=== PATIENT | female | born 1980 | race Caucasian/White ===

== ENCOUNTER 2016-08-01 21:01 | Emergency (ER) | payer MEDICAID ==
[2016-08-01 21:17] VITALS: BP 140/86
--- NOTE | 2016-08-02 01:37 | ER ---
DATE SEEN: 08/01/2016 TIME SEEN: The patient was seen at 2109 hours. CHIEF COMPLAINT: Chest pain. HISTORY OF PRESENT ILLNESS: This 35-year-old at 2000 hours yesterday noted midsternal discomfort. This morning, she had 4/10 interscapular pain . This pain was continuous through mid a.m. and stopped. She has mild discomfort now. She describes a constant pressure. The chest pain she describes is 7-8/10 in intensity. It comes and goes. It is stabbing in character. It is mostly frontal and lasts 4 to 5 minutes. It started at 2000 hours this evening. Also was noted to have come 5 to 10 minutes apart starting at 0630 hours this evening. She lifts heavy things at work. 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 The patient denies low back ache. She did not think the pain is worse with lifting today. She does not work tomorrow. She has associated mild shortness of breath. Had a cold sweat with this chest discomfort today and not skipped a meal. She has chronic smoker's cough, most notable in last few years, has shortness of breath, dyspnea on exertion on occasion. Occasionally, she had mild abdominal pain off and on. She does not drink alcohol while working, but she has one drink at night half our before leaving work. She has mild associated jaw pain. No problems with her teeth. PAST MEDICAL HISTORY: Previous hysterectomy, bilateral salpingo-oophorectomy, 7, para 3-5-0-3. Had one child who at age 3.5 months of a heart problem, she described as myocardial infarction. She is not really sure why he . Has one daughter who has stage IV cancer, she is 5 years now post treatment, is 15 years of age. No diabetes, no heart disease, no high blood pressure, asthma, or other serious illnesses. No trauma. No abuse. The patient is and . REVIEW OF SYSTEMS: Negative. The patient denies syncope, palpitations, irregular heartbeat. No nausea, vomiting, diarrhea, constipation, blood in her stool, black tarry stools, frequency, urgency or dysuria, musculoskeletal complaints, joint pain, skin problems, or shingles. PHYSICAL EXAMINATION: VITAL SIGNS: Blood pressure 140/86, heart rate 82, respirations 23, oxygen saturation 98%. Temperature 37 degrees centigrade, 66.678 kilos. BMI is 26.9. GENERAL: This pleasant, slightly short-statured woman is in no acute distress presently. She is mildly overweight. HEENT: Mildly prominent, scarring from old acne scar. TMs negative. Pharynx without abnormality. NECK: No bruits. No thyromegaly. No masses in neck. LUNGS: Clear without rales, rhonchi, or wheezes. HEART: S1, S2. No murmur. No irregular rate or rhythm. No S3. ABDOMEN: Soft. No guarding. No abdominal discomfort. No chest wall discomfort with palpation. No crepitus. No spinous process tenderness. MUSCULOSKELETAL: Cervical spine: No scapular spine and no paraspinal myalgia reproduced on palpation of back. No CVA percussion tenderness. NEURO: Deep tendon reflex upper and lower extremities. Cranial nerves 2 through 12 intact. Appropriate, oriented, and speaks appropriately. DIAGNOSTIC DATA: EKG is sinus rhythm. Troponin is normal. Complete metabolic panel is normal except for mild dehydration, 28.6 of BUN and creatinine ratio. D-dimer is less than 100. ASSESSMENT: 1. Nonspecific chest pain. Etiology indeterminate. 2. If she has persistent further discomfort, she has been advised to have a stress test performed. 3. Mildly overweight. 4. Smokes less than a pack per day. 5. She is an active woman, very possibly may be a musculoskeletal etiology to the patient's pain. No history of acid peptic disease or esophagitis. PLAN: Follow up with doctor in a week. No medications given to the patient. /[id number] CRISTEL/LONNY CABRALES
--- NOTE | 2016-08-07 11:21 | CR ---
INDICATION: Chest pain. CHEST, PA AND LATERAL VIEWS: FINDINGS: No comparison imaging. There appears to be some slight scalloping or eventration of the right hemidiaphragm. The lungs are clear of acute infiltrate or effusion. The heart size is at the upper limits of normal. There is no CHF. The mediastinal contours look normal. There is a scoliosis deformity lower thoracic spine curved convex left. Mid lumbar spine is curved convex right. There is some generalized degenerative endplate change and spurring throughout the thoracic spine. IMPRESSION: No acute abnormality in the chest. Specifically, no CHF or pneumonia. MTDD
== END 2016-08-01 22:20 | disposition home or self-care (01) ==
LOC: FB.ED 21:01
DX: R07.89 Other chest pain (principal); E66.3 Overweight; F17.210 Nicotine dependence, cigarettes, uncomplicated; Z90.710 Acquired absence of both cervix and uterus; Z90.722 Acquired absence of ovaries, bilateral
CPT/HCPCS: 36415; 71020; 80053; 84484; 85379; 93005; 99285

== ENCOUNTER 2017-01-02 01:00 | Emergency (ER) | payer MEDICAID ==
[2017-01-02] MEDS ORDERED: Ibuprofen 600 MG Tab PO ONE (01:24)
[2017-01-02] MEDS ORDERED: Nicotine 21 MG/24 Hr Patch TRDERM ONE (02:50)
[2017-01-02] MEDS ORDERED: Nicotine 21 MG/24 Hr Patch ONE (02:59)
--- NOTE | 2017-01-02 04:46 | EDM.PDOC ---
ED HPI GENERAL MEDICAL PROBLEM - General Chief Complaint: Neck Problem Stated Complaint: FELL AND HIT THROAT Time Seen by Provider: 01/02/17 01:10 Source of Information: Reports: Patient, Family History Limitations: Reports: No Limitations - History of Present Illness INITIAL COMMENTS - FREE TEXT/NARRATIVE: Patient is a 36 year old woman who at 23:00 on 01-01-17 tripped at a bar and the front of her neck hit the edge of a barstool. She had pain and she tried drinking some more alcohol to deaden the pain, which did not help. She went home and when she laid down flat she had worsening pain in the neck and she felt that it was hard to breathe due to the pain. If she sits up she has less pain and no problems breathing. No other complaints. 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 Anterior throat/neck Pain Score (Numeric/FACES): 8 - Related Data Allergies Allergy/AdvReac Type Severity Reaction Status Date / Time bupropion [From Wellbutrin] AdvReac Severe Hives Verified 01/02/17 01:23 Penicillins AdvReac Shortness Verified 01/02/17 01:23 of Breath Home Meds: Home Meds NK [No Known Home Meds] 08/01/16 [History] Past Medical History HEENT History: Reports: None Cardiovascular History: Reports: Other (See Below) Other Cardiovascular History: palpitations Gastrointestinal History: Reports: Celiac Disease, GERD PRIVATE WEALTH ADVISOR History: Reports: Endometrial Ablation, Endometriosis Musculoskeletal History: Reports: Fracture, Other (See Below) Other Musculoskeletal History: plates in L) arm, fx to fingers of R hand Neurological History: Reports: Concussion, Migraines, Seizure, Other (See Below) Other Neuro History: hx alcoholic seizures Psychiatric History: Reports: Addiction, Anxiety, Bipolar, Depression, Psych Hospitalization(s), Suicide Attempt Endocrine/Metabolic History: Reports: Obesity/BMI 30+ Dermatologic History: Reports: Other (See Below) Other Dermatologic History: acne - Infectious Disease History Infectious Disease History: Reports: Chicken Pox - Past Surgical History HEENT Surgical History: Reports: Other (See Below) Other HEENT Surgeries/Procedures: benign growth removed from throat Cardiovascular Surgical History: Reports: None GI Surgical History: Reports: None, EGD Female Surgical History: Reports: Hysterectomy Neurological Surgical History: Reports: None Musculoskeletal Surgical History: Reports: ORIF, Other (See Below) Other Musculoskeletal Surgeries/Procedures:: L arm surgery Dermatological Surgical History: Reports: None Social & Family History - Family History Family Medical History: Noncontributory - Tobacco Use Smoking Status *Q: Current Every Day Smoker Years of Tobacco use: 28 Packs/Tins Daily: 1.5 - Caffeine Use Caffeine Use: Reports: Coffee, Soda - Alcohol Use Days Per Week of Alcohol Use: 2 Number of Drinks Per Day: 5 Total Drinks Per Week: 10 - Recreational Drug Use Recreational Drug Use: Yes Drug Use in Last 12 Months: Yes Recreational Drug Type: Reports: Marijuana/Hashish Recreational Drug Use Frequency: Daily ED ROS GENERAL - Review of Systems Review Of Systems: See Below Constitutional: Reports: No Symptoms HEENT: Reports: Other (Neck pain where she hit barstool.) Respiratory: Reports: No Symptoms Cardiovascular: Reports: No Symptoms Endocrine: Reports: No Symptoms GI/Abdominal: Reports: No Symptoms : Reports: No Symptoms Musculoskeletal: Reports: Neck Pain Skin: Reports: No Symptoms Neurological: Reports: No Symptoms Psychiatric: Reports: No Symptoms Hematologic/Lymphatic: Reports: No Symptoms Immunologic: Reports: No Symptoms ED EXAM, UPPER BACK/NECK PAIN - Physical Exam Exam: See Below Exam Limited By: No Limitations General Appearance: Alert, WD/WN, No Apparent Distress Eye Exam: Bilateral Eye: EOMI, Normal Fundi, Normal Inspection, PERRL Ears Exam: Normal External Exam, Normal Canal, Hearing Grossly Normal, Normal TMs Nose Exam: Normal Inspection, Normal Mucousa, No Blood Throat/Mouth Exam: Normal Inspection, Normal Lips, Normal Teeth, Normal Gums, Normal Oropharynx, Normal Voice, No Airway Compromise Head Exam: Atraumatic, Normocephalic Neck Exam: Tenderness (Over front of neck with pain on palpation and minor swelling.) Cardiovascular/Respiratory: Regular Rate, Rhythm, No M/R/G, Normal Peripheral Pulses, No JVD, Normal Breath Sounds, No Respiratory Distress GI/Abdominal: Normal Bowel Sounds, Soft, Non-Tender, No Organomegaly, No Distention, No Abnormal Bruit, No Mass (Female) Exam: Normal External Exam, Normal Speculum Exam, Normal Bimanual Exam Back Exam: Normal Inspection, Full Range of Motion, NT Extremities: Normal Inspection, Normal Range of Motion, Non-Tender, No Pedal Edema, Normal Capillary Refill 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 She got some relief with 600 mg po Ibuprofen and she was comfortable and had no difficulties breathing with normal Oxygen saturations while she was in the ED. Her ETOH was 150 and her other labs were normal. Her head and neck CT's were normal and there was no free air in the neck CT, indicating no laryngeal injury. She will be discharged home on Ibuprofen 600 mg po q 6 hours, Tylenol 500 mg po q 4 hours, rest, ice as needed and recheck with PCP if pain is not resolving. Come to ED if any problems breathing. Last Recorded V/S: Last Vital Signs Temp 36.4 C 01/02/17 01:06 Pulse 115 H 01/02/17 01:06 Resp 18 01/02/17 03:30 BP 130/84 01/02/17 03:30 Pulse Ox 100 01/02/17 03:30 - Orders/Labs/Meds Orders: Active Orders 24 hr Category Date Time Status Cervical Spine wo Cont [CT] Stat Exams 01/02/17 01:24 Taken Head wo Cont [CT] Stat Exams 01/02/17 01:28 Ordered Labs: Laboratory Tests 01/02/17 01/02/17 01/02/17 Range/Units 02:38 02:38 02:38 WBC 10.9 (4.5-12.0) X10-3/uL RBC 4.60 (3.23-5.20) x10(6)uL Hgb 14.5 (11.5-15.5) g/dL Hct 41.5 (30.0-51.3) % MCV 90.2 (80-96) fL MCH 31.6 (27.7-33.6) pg MCHC 35.0 (32.2-35.4) g/dL RDW 12.2 (11.5-15.5) % Plt Count 363 (125-369) X10(3)uL MPV 7.6 (7.4-10.4) fL Neut % (Auto) 50.5 (46-82) % Lymph % (Auto) 39.4 H (13-37) % [place] % (Auto) 7.5 (4-12) % Eos % (Auto) 2 (1.0-5.0) % Baso % (Auto) 1 (0-2) % Neut # (Auto) 5.5 (1.6-8.3) # Lymph # (Auto) 4.3 (0.6-5.0) # [place] # (Auto) 0.8 (0.0-1.3) # Eos # (Auto) 0.2 (0.0-0.8) # Baso # (Auto) 0.1 (0.0-0.2) # Sodium 142 (135-145) mmol/L Potassium 4.3 (3.5-5.3) mmol/L Chloride 108 (100-110) mmol/L Carbon Dioxide 25 (23-29) mmol/L BUN 12 (5-20) mg/dL Creatinine 0.6 (0.6-1.3) mg/dL Est Cr Clr Drug Dosing 96.87 mL/min Estimated GFR (MDRD) > 60 (>60) BUN/Creatinine Ratio 20.0 (9-20) Glucose 107 (80-116) mg/dL Calcium 9.3 (8.6-10.2) mg/dL Total Bilirubin 0.4 (0.1-1.3) mg/dL AST 18 (5-27) IU/L ALT 26 D (14-26) IU/L Alkaline Phosphatase 59 (56-112) IU/L Total Protein 7.7 (6.0-8.0) g/dL Albumin 4.5 (3.5-5.2) g/dL Globulin 3.2 g/dL Albumin/Globulin Ratio 1.4 Ethyl Alcohol 0.15 H* (<0.01) % Meds: Medications Discontinued Medications Generic Name Dose Route Start Last Admin Trade Name Freq PRN Reason Stop Dose Admin Ibuprofen 600 mg 11/17/17 01:24 01/02/17 01:39 Motrin PO 01/02/17 01:25 600 mg ONETIME ONE Administration Nicotine Confirm 01/02/17 02:59 01/02/17 03:05 Habitrol Administered 01/02/17 03:00 21 mg Dose Administration 21 mg .ROUTE .STK-MED ONE Departure - Departure Time of Disposition: 04:53 Disposition: Home, Self-Care 01 Condition: Good Clinical Impression: Contusion of neck - Discharge Information Referrals: PCP,None [Primary Care Provider] - - My Orders Last 24 Hours: My Active Orders 01/02/17 01:24 Cervical Spine wo Cont [CT] Stat 01/02/17 01:28 Head wo Cont [CT] Stat - Assessment/Plan Last 24 Hours: My Active Orders 01/02/17 01:24 Cervical Spine wo Cont [CT] Stat 01/02/17 01:28 Head wo Cont [CT] Stat
[2017-01-02 04:57] VITALS: BP 123/91
== END 2017-01-02 04:45 | disposition home or self-care (01) ==
LOC: FB.ED 01:00
DX: S10.93XA Contusion of unspecified part of neck, initial encounter (principal); F17.210 Nicotine dependence, cigarettes, uncomplicated; E66.9 Obesity, unspecified; Z88.0 Allergy status to penicillin; Z88.8 Allergy status to other drugs, medicaments and biological substances; W22.8XXA Striking against or struck by other objects, initial encounter; Y92.89 Other specified places as the place of occurrence of the external cause
CPT/HCPCS: 36415; 72125; 80053; 85025; 99284; A9270; G0480

== ENCOUNTER 2018-11-06 15:05 | Emergency (ER) | payer BC, MEDICAID ==
[2018-11-06] MEDS ORDERED: Codeine/guaiFENesin 100mg-10 MG/5 ML Soln 118 ML Bottle PO ONE (15:06)
[2018-11-06] MEDS ORDERED: methylPREDNISolone Sodium Succinate 125 MG/2 ML SDV IVPUSH ONE (15:15)
--- NOTE | 2018-11-06 15:17 | EDM.PDOC ---
ED HPI GENERAL MEDICAL PROBLEM - General Chief Complaint: Respiratory Problem Stated Complaint: sent from clinic Time Seen by Provider: 11/06/18 15:11 Source of Information: Reports: Patient, Family History Limitations: Reports: No Limitations - History of Present Illness INITIAL COMMENTS - FREE TEXT/NARRATIVE: 38 y.o. chronic smoker, was transferred to the ED for further evaluation and Tx of her cont cough and SOB. Pt is a chronic/daily smoker, is using a duo neb nebs and is on Doxycycline as well. None of those meds helped her, which made her to come to the several time in the past few weeks/days. No C/P no N/V/D or any other acute med issues. 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 (see below) (duoneb) - Related Data Allergies Allergy/AdvReac Type Severity Reaction Status Date / Time bupropion [From Wellbutrin] AdvReac Severe Hives Verified 11/06/18 16:04 Penicillins AdvReac Shortness Verified 11/06/18 16:04 of Breath Home Meds: Home Meds Albuterol Sulfate [Albuterol Sulfate Hfa] 18 gm IH Q4HR PRN #1 hfa.aer.ad [Rx] Albuterol [Ventolin HFA] 1 puff INH Q4H PRN 11/06/18 [History] Ciprofloxacin HCl [Cipro] 500 mg PO BID #20 tablet 11/06/18 [Rx] Doxycycline Monohydrate 100 mg PO DAILY 11/06/18 [History] predniSONE 20 mg PO WITHBREAKFAST #4 tab 11/06/18 [Rx] Past Medical History HEENT History: Reports: None Cardiovascular History: Reports: Other (See Below) Other Cardiovascular History: palpitations Respiratory History: Reports: COPD Gastrointestinal History: Reports: Celiac Disease, GERD Genitourinary History: Reports: Urinary Incontinence AFTER SCHOOL COORDINATOR History: Reports: Endometrial Ablation, Endometriosis, Other AFTER SCHOOL COORDINATOR History: Musculoskeletal History: Reports: Fracture, Other (See Below) Other Musculoskeletal History: plates in L) arm, fx to fingers of R hand Neurological History: Reports: Concussion, Migraines, Seizure, Other (See Below) Other Neuro History: hx alcoholic seizures Psychiatric History: Reports: Addiction, Anxiety, Bipolar, Depression, Psych Hospitalization(s), Suicide Attempt Endocrine/Metabolic History: Reports: Obesity/BMI 30+ Hematologic History: Reports: Anemia Dermatologic History: Reports: Other (See Below) Other Dermatologic History: acne - Infectious Disease History Infectious Disease History: Reports: Chicken Pox, MRSA - Past Surgical History HEENT Surgical History: Reports: Other (See Below) Other HEENT Surgeries/Procedures: benign growth removed from vocal cords Cardiovascular Surgical History: Reports: None GI Surgical History: Reports: None, EGD Female Surgical History: Reports: Hysterectomy Neurological Surgical History: Reports: None Musculoskeletal Surgical History: Reports: ORIF, Other (See Below) Other Musculoskeletal Surgeries/Procedures:: L arm surgery Dermatological Surgical History: Reports: None Social & Family History - Family History Family Medical History: Noncontributory - Caffeine Use Caffeine Use: Reports: Coffee, Soda ED ROS GENERAL - Review of Systems Review Of Systems: See Below Constitutional: Reports: No Symptoms HEENT: Reports: No Symptoms Respiratory: Reports: Wheezing, Cough Cardiovascular: Reports: No Symptoms Endocrine: Reports: No Symptoms GI/Abdominal: Reports: No Symptoms : Reports: No Symptoms Musculoskeletal: Reports: No Symptoms Skin: Reports: No Symptoms Neurological: Reports: No Symptoms Psychiatric: Reports: No Symptoms Hematologic/Lymphatic: Reports: No Symptoms Immunologic: Reports: No Symptoms ED EXAM, GENERAL - Physical Exam Exam: See Below Exam Limited By: Respiratory Distress General Appearance: Alert, WD/WN Eye Exam: Bilateral Eye: Normal Inspection Ears: Normal External Exam Ear Exam: Bilateral Ear: Auricle Normal Nose: Normal Inspection, Normal Mucosa, No Blood Throat/Mouth: Normal Lips, Normal Voice, No Airway Compromise Head: Atraumatic, Normocephalic Neck: Normal Inspection, Supple, Non-Tender, Full Range of Motion Respiratory/Chest: Chest Non-Tender, Rhonchi Cardiovascular: Normal Peripheral Pulses, Regular Rate, Rhythm, No Edema Peripheral Pulses: 1+: Carotid (R) GI/Abdominal: Normal Bowel Sounds, Soft, Non-Tender, No Abnormal Bruit, No Mass , Pelvis Stable (Female) Exam: Deferred Rectal (Female) Exam: Deferred Back Exam: Normal Inspection Extremities: Normal Inspection, Normal Range of Motion, Non-Tender Neurological: Alert, Oriented, CN II-XII Intact, Normal Cognition Psychiatric: Normal Affect, Normal Mood Skin Exam: Warm, Dry, Intact, Normal Color, No Rash Lymphatic: No Adenopathy Course - Vital Signs Text/Narrative:: 38 y.o. chronic smoker, was transferred to the ED for further evaluation and Tx of her cont cough and SOB. Pt is a chronic/daily smoker, is using a duo neb nebs and is on Doxycycline as well. None of those meds helped her, which made her to come to the several time in the past few weeks/days. No C/P no N/V/D or any other acute med issues. BP 135/94 RR 16 Pulse ox 96% Temp 36.8 PE: WNWD W F with, chronic/intermittent cough. Imaging from 11/03/2018: Bronchial Wall cuffing Labs: CBC, BMP Nl Impression: Asthma/COPD exacerbation, Acute/Chronic bronchitis. Possible active peribronchial disease Tx: Albuterol nebs X 2, Levofloxacin, Solu Medrol. Reexam: Improved Plan: D/C with instructions. Last Recorded V/S: Last Vital Signs Temp 36.8 C 11/06/18 15:14 Pulse 86 11/06/18 15:14 Resp 16 11/06/18 15:14 BP 135/94 H 11/06/18 15:14 Pulse Ox 99 11/06/18 15:14 - Orders/Labs/Meds Orders: Active Orders 24 hr Category Date Time Status RT Aerosol Therapy [RC] ASDIRECTED Care 11/06/18 15:25 Active RT Aerosol Therapy [RC] ASDIRECTED Care 11/06/18 15:47 Active ABG [BLOOD GAS ARTERIAL] [BG] Stat Lab 11/06/18 15:30 Results Levofloxacin/Dextrose 5%-Water [Levaquin in D5W 500 MG/ Med 11/06/18 15:40 Active 100 ML] 500 mg Premix Bag 1 bag IV ONETIME Medication Orders Levofloxacin/Dextrose 500 mg/ (Premix) 100 mls @ 100 mls/hr IV ONETIME STA Stop: 11/06/18 16:39 Last Admin: 11/06/18 15:48 Dose: 100 mls/hr Labs: Laboratory Tests 11/06/18 Range/Units 15:30 ABG pH 7.49 H (7.35-7.45) ABG pCO2 32 L (35-45) mmHg ABG pO2 111 H (83-108) mmHg ABG HCO3 24 (22-26) mmol/L ABG O2 Saturation 99 H (96-97) % ABG Base Excess 1.9 (-2-2) O2 Delivery Device Room air Meds: Medications Generic Name Dose Route Start Last Admin Trade Name Freq PRN Reason Stop Dose Admin Levofloxacin/Dextrose 500 mg/ 100 mls @ 100 mls/hr 11/06/18 15:40 11/06/18 15 :48 Premix IV 11/06/18 16:39 100 mls/hr ONETIME STA Administration Discontinued Medications Generic Name Dose Route Start Last Admin Trade Name Freq PRN Reason Stop Dose Admin Albuterol 2.5 mg 11/06/18 15:24 11/06/18 15:28 Proventil Neb Soln NEB 11/06/18 15:25 2.5 mg ONETIME ONE Administration Albuterol 2.5 mg 11/06/18 15:47 11/06/18 15:55 Proventil Neb Soln NEB 11/06/18 15:48 2.5 mg ONETIME ONE Administration Methylprednisolone Sodium Succinate 125 mg 11/06/18 15:15 11/06/18 15:28 Solu-Medrol IVPUSH 11/06/18 15:16 125 mg ONETIME ONE Administration Departure - Departure Time of Disposition: 16:22 Disposition: Home, Self-Care 01 Condition: Good Clinical Impression: Peribronchial pneumonia Asthma exacerbation attacks Qualifiers: Asthma severity: moderate Asthma persistence: unspecified Qualified Code(s): J45.901 - Unspecified asthma with (acute) exacerbation - Discharge Information Prescriptions: Albuterol Sulfate [Albuterol Sulfate Hfa] 18 gm IH Q4HR PRN #1 hfa.aer.ad PRN Reason: cough, SOB Ciprofloxacin HCl [Cipro] 500 mg PO BID #20 tablet predniSONE 20 mg PO WITHBREAKFAST #4 tab Referrals: Ester Wayne NP [Primary Care Provider] - Forms: ED Department Discharge Additional Instructions: Please Quit tobacco use immediately, please cont your Albuterol inhalers every 4 hours while awake today. Please take Cipro, prednisone as recommended. please take Robitussin with codeine for cough at night. Please f/u with a learning and development specialist as soon as possible. Please come back if your symptoms get worse acutely - My Orders Last 24 Hours: My Active Orders 11/06/18 15:25 RT Aerosol Therapy [RC] ASDIRECTED 11/06/18 15:30 ABG [BLOOD GAS ARTERIAL] [BG] Stat 11/06/18 15:40 Levofloxacin/Dextrose 5%-Water [Levaquin in D5W 500 MG/100 ML] 500 mg Premix Bag 1 bag IV ONETIME 11/06/18 15:47 RT Aerosol Therapy [RC] ASDIRECTED - Assessment/Plan Last 24 Hours: My Active Orders 11/06/18 15:25 RT Aerosol Therapy [RC] ASDIRECTED 11/06/18 15:30 ABG [BLOOD GAS ARTERIAL] [BG] Stat 11/06/18 15:40 Levofloxacin/Dextrose 5%-Water [Levaquin in D5W 500 MG/100 ML] 500 mg Premix Bag 1 bag IV ONETIME 11/06/18 15:47 RT Aerosol Therapy [RC] ASDIRECTED
[2018-11-06] MEDS ORDERED: Albuterol 0.083% 2.5 MG/3 ML Neb Soln NEB ONE ×2 (15:24→15:47)
[2018-11-06] MEDS ORDERED: Levofloxacin/Dextrose 5%-Water 500 MG in Premix Bag 1 BAG IV STA (15:40)
[2018-11-06 17:10] VITALS: BP 118/72; PULSE 75
== END 2018-11-06 17:05 | disposition home or self-care (01) ==
LOC: FB.ED 15:05
DX: J45.901 Unspecified asthma with (acute) exacerbation (principal); J18.9 Pneumonia, unspecified organism; E66.9 Obesity, unspecified; Z68.32 Body mass index [BMI] 32.0-32.9, adult; Z86.2 Personal history of diseases of the blood and blood-forming organs and certain disorders involving the immune mechanism
CPT/HCPCS: 36600; 82803; 94640; 96365; 96366; 96375; 99283; J1956; J2930; A9270-GY

== ENCOUNTER 2019-09-29 09:23 | Day surgery (SDC) | payer BC, MEDICAID ==
[2019-09-29] MEDS ORDERED: Propofol 200 MG/20 ML SDV IV ONE (09:24)
[2019-09-29] MEDS ORDERED: Midazolam 1 MG/ML 2 ML SDV IV ONE (09:24)
[2019-09-29] MEDS ORDERED: Dexmedetomidine 200 MCG/2 ML SDV IV ONE (09:24)
[2019-09-29] MEDS ORDERED: Ketamine 500 mg/10 ML MDV IV ONE (09:24)
[2019-09-29] MEDS ORDERED: Sodium Chloride 0.9% 10 ML Syringe FLUSH PRN (09:30)
[2019-09-29] MEDS ORDERED: Lactated Ringers 1,000 ML IV SCH (09:30)
--- NOTE | 2019-09-29 11:43 | PCM.OPNOTE ---
- General Post-Op/Procedure Note Date of Surgery/Procedure: 09/29/19 Operative Procedure(s): c scope with hot loop cold forcep biopsy Findings: grossly normal colonic mucosa sigmoid polyp x2 rectal polyp x4 Pre Op Diagnosis: diarrhea Post-Op Diagnosis: grossly normal colonic mucosa. sigmoid polyp x2. rectal polyp x4 Anesthesia Technique: MAC Primary Surgeon: Artemio Osuna Anesthesia Provider: Kailyn Ladd Pathology: sigmoid polyp x2 rectal polyp x4 Complications: None Condition: Good Free Text/Narrative:: see dictation
[2019-09-29 12:39] VITALS: BP 100/72; PULSE 69
--- NOTE | 2019-09-30 09:01 | OR ---
DATE OF OPERATION: 09/29/2019 SURGEON: Artemio Osuna MD PROCEDURE PERFORMED: Colonoscopy with hot loop and cold forceps biopsy. PREOPERATIVE DIAGNOSIS: Personal history of diarrhea. POSTOPERATIVE DIAGNOSES: 1. Grossly normal mucosa of the ascending, transverse, and descending colon. 2. Colon polyp x2 of sigmoid. 3. Colon polyp x4 of the rectum. INDICATIONS FOR PROCEDURE: This is a 39-year-old white female, who is referred with the above-mentioned complaints. She was offered and accepted same. DESCRIPTION OF OPERATION: After an excellent IV sedation was administered, digital rectal exam was performed. No marked abnormality was noted. Flexible colonoscope was inserted and advanced to the cecum. The prep was excellent. The following findings were noted. Ascending colon unremarkable. Transverse colon unremarkable. Descending colon unremarkable. In the sigmoid, 2 polypoid lesions, one biopsied with cold biopsy forceps, as we were not able to get a loop around it, and one biopsied with the hot loop snare, retrieved, and submitted in 1 container. In the rectum there were 4 polyps, three of these were biopsied with the hot loop snare, one of which was destroyed in the process, and the remaining one was biopsied with cold forceps and these were all submitted in 1 container. The one that was destroyed by the loop snare did not have as gross an adenomatous appearance as the other 3 polyps did. The patient tolerated the procedure well, was taken to recovery, and results to be sent via letter. /[id number] /[id number]
== END 2019-09-29 13:00 | disposition home or self-care (01) ==
LOC: FB.SDS 09:23
PROVIDERS: ATTEND Surgery
DX: K62.1 Rectal polyp (principal); K62.5 Hemorrhage of anus and rectum; F17.210 Nicotine dependence, cigarettes, uncomplicated; F25.9 Schizoaffective disorder, unspecified; Z88.0 Allergy status to penicillin; Z88.8 Allergy status to other drugs, medicaments and biological substances; Z79.899 Other long term (current) drug therapy
CPT/HCPCS: 00811; 45380; 45385; 88305; J2250; J2704; J7120

== ENCOUNTER 2020-12-23 12:05 | Emergency (ER) | payer BC ==
[2020-12-23] MEDS: Sodium Chloride 0.9% 10 ML Syringe FLUSH PRN (13:43)
[2020-12-23] MEDS: Ketorolac 30 MG/ML SDV IVPUSH STA (13:45)
--- NOTE | 2020-12-23 14:47 | EDM.PDOC ---
ED HPI GENERAL MEDICAL PROBLEM - General Chief Complaint: Back Pain or Injury Stated Complaint: BACK PAIN Time Seen by Provider: 12/23/20 13:05 Source of Information: Reports: Patient History Limitations: Reports: No Limitations - History of Present Illness INITIAL COMMENTS - FREE TEXT/NARRATIVE: Patient presented to the ED because of low back pain on the right side which started 2 days ago. The pain is sharp 7/10, worse with movements. She took OTC tylenol and Ibuprofen without any relief. There is no fever, chills, N/V, flank pain. Right Lower Back Pain Score (Numeric/FACES): 7 - Related Data Allergies Allergy/AdvReac Type Severity Reaction Status Date / Time bupropion [From Wellbutrin] Allergy Severe Hives Verified 12/23/20 13:52 zolpidem [From Ambien] Allergy Severe Confusion Verified 12/23/20 13:52 Penicillins Allergy Shortness Verified 12/23/20 13:52 of Breath Home Meds: Home Meds Albuterol [Ventolin HFA] 2 puff INH Q4H PRN 11/06/18 [History] Cyclobenzaprine [Flexeril] 10 mg PO TID PRN #15 tab 12/23/20 [Rx] Ibuprofen 800 mg PO TID PRN #30 tablet 12/23/20 [Rx] Metoprolol Succinate 50 mg PO DAILY 12/23/20 [History] Past Medical History HEENT History: Reports: None Cardiovascular History: Reports: Other (See Below) Other Cardiovascular History: palpitations Respiratory History: Reports: COPD Other Respiratory History: smoker for 20 years 1 pack a day. Gastrointestinal History: Reports: Celiac Disease, GERD Other Gastrointestinal History: CHRONIC DIARRHEA Genitourinary History: Reports: Urinary Incontinence [employer] History: Reports: Endometrial Ablation, Endometriosis, Other [employer] History: Musculoskeletal History: Reports: Fracture, Other (See Below) Other Musculoskeletal History: plates in L) arm, fx to fingers of R hand Neurological History: Reports: Concussion, Migraines, Seizure, Other (See Below) Other Neuro History: hx alcoholic seizures Psychiatric History: Reports: Addiction, Anxiety, Bipolar, Depression, Panic Attack, Psych Hospitalization(s), Schizophrenia, Suicide Attempt Endocrine/Metabolic History: Reports: Obesity/BMI 30+ Hematologic History: Reports: Anemia Dermatologic History: Reports: Other (See Below) Other Dermatologic History: acne - Infectious Disease History Infectious Disease History: Reports: Chicken Pox, MRSA - Past Surgical History HEENT Surgical History: Reports: Other (See Below) Other HEENT Surgeries/Procedures: benign growth removed from vocal cords Cardiovascular Surgical History: Reports: None GI Surgical History: Reports: None, EGD Female Surgical History: Reports: Hysterectomy Neurological Surgical History: Reports: None Musculoskeletal Surgical History: Reports: ORIF, Other (See Below) Other Musculoskeletal Surgeries/Procedures:: L arm surgery Dermatological Surgical History: Reports: None Social & Family History - Family History Family Medical History: No Pertinent Family History - Caffeine Use Caffeine Use: Reports: Coffee ED ROS GENERAL - Review of Systems Review Of Systems: See Below Constitutional: Reports: No Symptoms HEENT: Reports: No Symptoms Respiratory: Reports: No Symptoms Cardiovascular: Reports: No Symptoms Endocrine: Reports: No Symptoms GI/Abdominal: Reports: No Symptoms : Reports: No Symptoms Musculoskeletal: Reports: Back Pain Skin: Reports: No Symptoms Neurological: Reports: No Symptoms ED EXAM,LOWER BACK PAIN/INJURY - Physical Exam Exam: See Below Exam Limited By: No Limitations General Appearance: Alert, No Apparent Distress Eye Exam: Bilateral Eye: PERRL Ears: Normal External Exam, Normal Canal, Normal TMs Nose: Normal Inspection, Normal Mucosa, No Blood Throat/Mouth: Normal Inspection, Normal Lips, Normal Teeth, Normal Gums, Normal Oropharynx, Normal Voice Head: Atraumatic, Normocephalic Neck: Normal Inspection, Supple, Non-Tender, Full Range of Motion Respiratory/Chest: No Respiratory Distress, Lungs Clear, Normal Breath Sounds, No Accessory Muscle Use, Chest Non-Tender Cardiovascular: Normal Peripheral Pulses, Regular Rate, Rhythm, No Edema, No Gallop, No JVD, No Murmur GI/Abdominal: Normal Bowel Sounds, Soft, Non-Tender, No Organomegaly, No Distention, No Abnormal Bruit, No Mass, Pelvis Stable Back Exam: Normal Inspection, Muscle Spasm, Vertebral Tenderness Course - Vital Signs Text/Narrative:: Laab/CT result was reviewed and discussed with patient Toradol 30 mg IV x1 and her pain was better and tolerable. Lab and CT scan were all normal. Last Recorded V/S: Last Vital Signs Temp 36.8 C 12/23/20 14:58 Pulse 82 12/23/20 14:58 Resp 18 12/23/20 14:58 BP 142/94 H 12/23/20 14:58 Pulse Ox 97 12/23/20 14:58 - Orders/Labs/Meds Labs: Laboratory Tests 12/23/20 12/23/20 12/23/20 Range/Units 13:00 13:07 13:07 WBC 10.8 H (3.0-10.3) x10-3/uL RBC 4.79 (3.60-5.20) x10(6)uL Hgb 15.0 (11.4-15.5) g/dL Hct 44.5 (34.2-48.2) % MCV 93.0 (76.7-100.5) fL MCH 31.3 (23.9-33.9) pg MCHC 33.7 (31.9-34.8) g/dL RDW 12.9 (12.3-16.5) % Plt Count 328 (151-488) x10(3)uL MPV 8.1 (7.1-12.4) fL Neut % (Auto) 59.7 (30.8-76.2) % Lymph % (Auto) 29.7 (18.4-52.1) % Hendricks % (Auto) 8.3 (4.4-15.7) % Eos % (Auto) 1.4 (0.6-8.1) % Baso % (Auto) 0.9 (0.2-1.5) % Neut # (Auto) 6.5 H (1.5-6.3) x10-3/uL Lymph # (Auto) 3.2 (1.0-4.4) x10-3/uL Hendricks # (Auto) 0.9 (0.3-1.0) x10-3/uL Eos # (Auto) 0.2 (0.0-0.8) x10-3/uL Baso # (Auto) 0.1 (0.0-0.1) x10-3/uL Sodium 139 (135-145) mmol/L Potassium 4.3 (3.5-5.3) mmol/L Chloride 105 (100-110) mmol/L Carbon Dioxide 26 (21-32) mmol/L BUN 13 (7-18) mg/dL Creatinine 1.0 (0.55-1.02) mg/dL Est Cr Clr Drug Dosing TNP Estimated GFR (MDRD) > 60 (>60) BUN/Creatinine Ratio 13.0 (9-20) Glucose 94 (80-116) mg/dL Calcium 9.0 (8.6-10.2) mg/dL Total Bilirubin 0.4 (0.1-1.3) mg/dL AST 27 H (5-25) IU/L ALT 74 H (12-36) U/L Alkaline Phosphatase 72 (56-112) IU/L Total Protein 7.6 (6.0-8.0) g/dL Albumin 4.1 (3.5-5.2) g/dL Globulin 3.5 g/dL Albumin/Globulin Ratio 1.2 Amylase 50 (25-115) U/L Lipase (73-393) U/L Urine Color Yellow (YELLOW) Urine Appearance Slightly cloudy (CLEAR) Urine pH 6.0 (5.0-6.5) Ur Specific Garland 1.020 (1.010-1.025) Urine Protein Negative (NEGATIVE) mg/dL Urine Glucose (UA) Normal (NORMAL) mg/dL Urine Ketones Negative (NEGATIVE) mg/dL Urine Occult Blood Negative (NEGATIVE) Urine Nitrite Negative (NEGATIVE) Urine Bilirubin Negative (NEGATIVE) Urine Urobilinogen Normal (NEGATIVE) mg/dL Ur Leukocyte Esterase Negative (NEGATIVE) Urine RBC 0-5 (0-5) Urine WBC 0-5 (0-5) Ur Squamous Epith Cells Few H (NS,R,O) Urine Bacteria Few H (NS) 12/23/20 Range/Units 13:07 WBC (3.0-10.3) x10-3/uL RBC (3.60-5.20) x10(6)uL Hgb (11.4-15.5) g/dL Hct (34.2-48.2) % MCV (76.7-100.5) fL MCH (23.9-33.9) pg MCHC (31.9-34.8) g/dL RDW (12.3-16.5) % Plt Count (151-488) x10(3)uL MPV (7.1-12.4) fL Neut % (Auto) (30.8-76.2) % Lymph % (Auto) (18.4-52.1) % Hendricks % (Auto) (4.4-15.7) % Eos % (Auto) (0.6-8.1) % Baso % (Auto) (0.2-1.5) % Neut # (Auto) (1.5-6.3) x10-3/uL Lymph # (Auto) (1.0-4.4) x10-3/uL Hendricks # (Auto) (0.3-1.0) x10-3/uL Eos # (Auto) (0.0-0.8) x10-3/uL Baso # (Auto) (0.0-0.1) x10-3/uL Sodium (135-145) mmol/L Potassium (3.5-5.3) mmol/L Chloride (100-110) mmol/L Carbon Dioxide (21-32) mmol/L BUN (7-18) mg/dL Creatinine (0.55-1.02) mg/dL Est Cr Clr Drug Dosing Estimated GFR (MDRD) (>60) BUN/Creatinine Ratio (9-20) Glucose (80-116) mg/dL Calcium (8.6-10.2) mg/dL Total Bilirubin (0.1-1.3) mg/dL AST (5-25) IU/L ALT (12-36) U/L Alkaline Phosphatase (56-112) IU/L Total Protein (6.0-8.0) g/dL Albumin (3.5-5.2) g/dL Globulin g/dL Albumin/Globulin Ratio Amylase (25-115) U/L Lipase 129 (73-393) U/L Urine Color (YELLOW) Urine Appearance (CLEAR) Urine pH (5.0-6.5) Ur Specific Garland (1.010-1.025) Urine Protein (NEGATIVE) mg/dL Urine Glucose (UA) (NORMAL) mg/dL Urine Ketones (NEGATIVE) mg/dL Urine Occult Blood (NEGATIVE) Urine Nitrite (NEGATIVE) Urine Bilirubin (NEGATIVE) Urine Urobilinogen (NEGATIVE) mg/dL Ur Leukocyte Esterase (NEGATIVE) Urine RBC (0-5) Urine WBC (0-5) Ur Squamous Epith Cells (NS,R,O) Urine Bacteria (NS) Meds: Medications Discontinued Medications Generic Name Dose Route Start Last Admin Trade Name Freq PRN Reason Stop Dose Admin Ketorolac Tromethamine 30 mg 12/23/20 12:52 12/23/20 13:45 Ketorolac 30 Mg/Ml Sdv IVPUSH 12/23/20 12:53 30 mg NOW STA Administration Sodium Chloride 10 ml 12/23/20 12:39 12/23/20 13:43 Sodium Chloride 0.9% 10 Ml Syringe FLUSH 10 ml ASDIRECTED PRN Administration Keep Vein Open Departure - Departure Time of Disposition: 14:50 Disposition: Home, Self-Care 01 Condition: Good Clinical Impression: Low back pain - Discharge Information Prescriptions: Cyclobenzaprine [Flexeril] 10 mg PO TID PRN #15 tab PRN Reason: Spasms Ibuprofen 800 mg PO TID PRN #30 tablet PRN Reason: Pain Instructions: Acute Back Pain, Adult Referrals: Ester Wayne NP [Primary Care Provider] - Forms: ED Department Discharge Additional Instructions: Please read discharge instructions on low back pain Apply ice or heat whichever your prefer Take all the following medicines at the same time for better pain relief Ibuprofen 800 mg, tylenol 1000 mg and flexeril 10 mg 3 times daily as needed for muscle spasm and pain Follow up as needed
[2020-12-23 15:18] VITALS: BP 142/94; PULSE 82
== END 2020-12-23 15:00 | disposition home or self-care (01) ==
LOC: FB.ED 12:05
DX: M54.50 Low back pain, unspecified (principal); J44.9 Chronic obstructive pulmonary disease, unspecified; E66.9 Obesity, unspecified; Z68.32 Body mass index [BMI] 32.0-32.9, adult; Z88.0 Allergy status to penicillin; Z88.8 Allergy status to other drugs, medicaments and biological substances
CPT/HCPCS: 36415; 80053; 81001; 82150; 83690; 85025; 96374; 99283; J1885

== ENCOUNTER 2021-06-11 09:01 | Emergency (ER) | payer BC ==
[2021-06-11 09:37] VITALS: BP 140/82; PULSE 93
[2021-06-11] MEDS ORDERED: Ketorolac 30 MG/ML SDV IM ONE (09:51)
== END 2021-06-11 09:55 | disposition home or self-care (01) ==
LOC: FB.ED 09:01
DX: S32.2XXA Fracture of coccyx, initial encounter for closed fracture (principal); J44.9 Chronic obstructive pulmonary disease, unspecified; E66.9 Obesity, unspecified; Z88.0 Allergy status to penicillin; Z68.31 Body mass index [BMI] 31.0-31.9, adult; Z88.8 Allergy status to other drugs, medicaments and biological substances; W18.39XA Other fall on same level, initial encounter
CPT/HCPCS: 96372; 99281; 99283; J1885

== ENCOUNTER 2021-07-29 15:12 | Emergency (ER) | payer BC ==
[2021-07-29] MEDS ORDERED: Aspirin 81 MG Tab.Chew PO ONE (15:51)
[2021-07-29] MEDS ORDERED: Sodium Chloride 0.9% 10 ML Syringe FLUSH PRN (15:51)
[2021-07-29] MEDS: Nitroglycerin 0.4 MG Tab.SL SL PRN ×3 (15:55→16:47)
[2021-07-29] MEDS ORDERED: Sodium Chloride 0.9% 1,000 ML IV SCH (16:00)
[2021-07-29 16:20] LABS: ESTIMATED GFR > 60 (>60)
[2021-07-29] MEDS ORDERED: Metoprolol Tartrate 5 MG in Sodium Chloride 0.9% 50 ML IV ONE (16:34)
[2021-07-29] MEDS ORDERED: Metoprolol Succinate 50 MG Tab.ER PO ONE (16:34)
[2021-07-29] MEDS ORDERED: Acetaminophen 500 MG Tab PO ONE (16:36)
[2021-07-29] MEDS ORDERED: Metoprolol Tartrate 5 MG/5 ML SDV IVPUSH ONE (16:44)
[2021-07-29] MEDS ORDERED: Iopamidol 755 Mg/ML 75 ML Bottle IV ONE (17:09)
[2021-07-29 17:34] VITALS: BP 181/110; PULSE 66
== END 2021-07-29 20:15 | disposition home or self-care (01) ==
LOC: FB.ED 15:12
DX: R07.89 Other chest pain (principal); I10 Essential (primary) hypertension; J44.9 Chronic obstructive pulmonary disease, unspecified; K21.9 Gastro-esophageal reflux disease without esophagitis; E66.9 Obesity, unspecified; Z68.34 Body mass index [BMI] 34.0-34.9, adult; Z88.0 Allergy status to penicillin; Z88.8 Allergy status to other drugs, medicaments and biological substances; Z72.0 Tobacco use
CPT/HCPCS: 36415; 71045; 71275; 80053; 83735; 84484; 85025; 85379; 93005; 96361; 96374; 99285; A9270; J3490; J7030; Q9967; 93010; 99283

== ENCOUNTER 2024-01-04 16:29 | Emergency (ER) | payer BC ==
[2024-01-04] MEDS: Cephalexin 500 MG Cap PO ONE (18:09)
[2024-01-04] MEDS: Sulfamethoxazole/Trimethoprim 800-160 MG Tab PO ONE (18:09)
[2024-01-04 18:27] VITALS: BP 156/104; PULSE 87
== END 2024-01-04 18:25 | disposition home or self-care (01) ==
LOC: FB.ED 16:29
DX: S70.322A Blister (nonthermal), left thigh, initial encounter (principal); S90.425A Blister (nonthermal), left lesser toe(s), initial encounter; L01.00 Impetigo, unspecified; I10 Essential (primary) hypertension; J44.9 Chronic obstructive pulmonary disease, unspecified; E66.9 Obesity, unspecified; F17.210 Nicotine dependence, cigarettes, uncomplicated; Z90.710 Acquired absence of both cervix and uterus; Z88.0 Allergy status to penicillin; Z88.8 Allergy status to other drugs, medicaments and biological substances; Z79.51 Long term (current) use of inhaled steroids; Z79.899 Other long term (current) drug therapy; X08.8XXA Exposure to other specified smoke, fire and flames, initial encounter
CPT/HCPCS: 87070; 87205; 99283; 99284; A9270-GY